=== PATIENT | female | born 1990 | race Two or more races ===

== ENCOUNTER 2019-06-10 16:59 | Inpatient (IN) | payer BC ==
[~2019-06-10] VITALS: Ht 152.4 cm; Wt 65.9 kg
[2019-06-10] MEDS ORDERED: albuterol 2.5 MG/3 ML nebule ONE (17:15)
[2019-06-10] MEDS ORDERED: normal saline 1000ML IV soln IVB ONE (17:20)
[2019-06-10] MEDS ORDERED: methylPREDNISolone sod succ 125mg/2ml vial IV ONE (17:20)
[2019-06-10] MEDS ORDERED: albuterol 2.5 MG/3 ML nebule CONTNEB PRN (17:20)
[2019-06-10 17:25] LABS: BASOPHILS # (AUTO) 0.1 X10'3 (0-0.2); BASOPHILS % (AUTO) 0.7 % (0-1); EOSINOPHILS # (AUTO) 0.4 X10'3 (0-0.9); HEMATOCRIT 43.5 % (35.0-45.0); HEMOGLOBIN 14.6 g/dl (12.0-16.0); LYMPHOCYTES # (AUTO) 2.6 X10'3 (1.1-4.8); LYMPHOCYTES % (AUTO) 36.7 % (21-51); MEAN CORPUSCULAR HEMOGLOBIN 29.7 PG (27.0-31.0); MEAN CORPUSCULAR HGB CONC 33.5 g/dL (33.0-36.5); MEAN CORPUSCULAR VOLUME 88.6 FL (78-98); MEAN PLATELET VOLUME 8.2 FL (7.4-10.4); MONOCYTES # (AUTO) 0.5 X10'3 (0-0.9); MONOCYTES % (AUTO) 7.5 % (2-12); NEUTROPHILS # (AUTO) 3.5 X10'3 (1.8-7.7); NEUTROPHILS % (AUTO) 49.1 % (42-75); PLATELET COUNT 344 X10'3 (140-440); RED BLOOD COUNT 4.91 X10'6 (4.20-5.60); RED CELL DISTRIBUTION WIDTH 13.6 % (11.5-14.5); WHITE BLOOD COUNT 7.1 X10'3 (4.5-11.0)
--- NOTE | 2019-06-10 17:33 | NUR ---
1700- Patient ambulated to room, vital signs obtained and found to be WNL. Insp/Exp wheezes noted to b/l Addendum: 06/10/19 at 1734 by CBLAKE upper lobes, but patient continued to be able to speak and respond. RT paged at this time. 170- Patient sat down on gurney and stated "I can't breathe." Satting 92-93%. 171- RN started 20G to RAC. Patient in tripod position and unable to speak. 171- RT at bedside. Patient became unresponsive. Dr. Madrid at bedside. Continuous Duoneb ordered. Patient repositioned, 4L NC applied. Patient's O2 sat quickly increased from 89% to 92%. Patient was able to assist staff with repositioning to semi-Fowlers. 172- Nebulizer initaitedinitiated. RN pushed solu-medrol as ordered. Patient's O2 saturations giovany to 100%, though she continued to be unresponsive to sternal pressure. 174- Patient now with eyes open; responsive and coughing. RR 16.
[2019-06-10] MEDS ORDERED: LORazepam 2 mg/ml vial IV ONE (17:35)
[2019-06-10 17:39] LABS: ALANINE AMINOTRANSFERASE 17 U/L (12-78); ALBUMIN 4.2 G/DL (3.4-5.0); ALBUMIN/GLOBULIN RATIO 1.4 (1.1-1.5); ALKALINE PHOSPHATASE 53 IU/L (46-116); ANION GAP 9 (8-16); ASPARTATE AMINO TRANSFERASE 17 U/L (10-37); BILIRUBIN,TOTAL 0.4 MG/DL (0.1-1.0); BLOOD UREA NITROGEN 16 MG/DL (7-18); BUN/CREATININE RATIO 23.2 (6.6-38.0); CALCIUM 9.8 MG/DL (8.5-10.1); CHLORIDE 105 MMOL/L (99-107); CREATININE 0.69 MG/DL (0.40-0.90); GLUCOSE 95 MG/DL (70-104); POTASSIUM 3.6 MMOL/L (3.5-5.1); SODIUM 138 MMOL/L (135-145); TOTAL PROTEIN 7.2 G/DL (6.4-8.2); eGFR > 90 ML/MIN
[2019-06-10] MEDS ORDERED: magnesium 2GM in 50ml NS 50 ML IV ONE (17:50)
--- NOTE | 2019-06-10 18:17 | NUR ---
RT notified that continuous neb is out of medication.
--- NOTE | 2019-06-10 18:32 | NUR ---
Paged PHYSICAL METEOROLOGIST for continuous neb treatment. Patient requested further breathing tx, inspiratory and expiratory wheezes are also present.
[2019-06-10] MEDS ORDERED: FLUT1BLS3 (19:03)
[2019-06-10] MEDS ORDERED: ALBU18HF2 INH ×2 (19:03→19:25)
[2019-06-10] MEDS ORDERED: PRED20TA PO (19:25)
[2019-06-10] MEDS ORDERED: acetaminophen 325mg tablet PO PRN (20:10)
[2019-06-10] MEDS ORDERED: ondansetron/PF 4mg/2ml inj IV PRN (20:10)
[2019-06-10] MEDS ORDERED: ipratropium/albuterol 3ml nebule NEB PRN (20:10)
[2019-06-10] MEDS ORDERED: magnesium hydroxide 30ml (MOM) UD suspension PO PRN (20:10)
[2019-06-10] MEDS ORDERED: mag hydrox/Alum hydrox/simeth 30ml oral suspension PO PRN (20:10)
[2019-06-10] MEDS: normal saline 1000ml 1,000 ML IV SCH ×2 (20:13→21:18)
--- NOTE | 2019-06-10 21:00 | NUR ---
Patient in room PCU 3024. I have received report from PARUL Hodge in ER and had the opportunity to ask questions and assume patient care.
[2019-06-10] MEDS: methylPREDNISolone sod succ/PF 40mg inj. IV SCH (23:42)
[2019-06-11] MEDS: ipratropium/albuterol 3ml nebule NEB SCH ×4 (00:04→11:05)
[2019-06-11 02:00] VITALS: BP 91/49
[2019-06-11] MEDS ORDERED: methylPREDNISolone sod succ 125mg/2ml vial IV SCH (02:00)
--- NOTE | 2019-06-11 02:02 | NUR ---
Patient arrived to PCU 3024A from ER for overnight observation. She walked to the bed and is able to move independently. A&Ox4 and Vital signs: BP 99/54, HR 124, Temp98.0F, RR 18, 96% on room air. Patient was placed on tele 48, educated about MRSA swab, and oriented to the room. Denies burning on urination, nausea, and chest pain. Questions were encouraged and answered. Will continue to monitor
--- NOTE | 2019-06-11 05:59 | NUR ---
Student Medication Administration: For this medication-pass time frame, all medication were reviewed, dispensed, administered and documented per hospital policy by Maggy BRADFORD. Student documentation: I have reviewed and agree with all interventions, assessments performed and documented by Maggy BRADFORD.
--- NOTE | 2019-06-11 06:00 | NUR ---
Patient in room PCU 3024. I have received report from Yolanda TERAN and had the opportunity to ask questions and assume patient care.
[2019-06-11 06:16] LABS: ALBUMIN 3.7 G/DL (3.4-5.0); ANION GAP 12 (8-16); BLOOD UREA NITROGEN 13 MG/DL (7-18); BUN/CREATININE RATIO 20.6 (6.6-38.0); CHLORIDE 108 MMOL/L (99-107); CREATININE 0.63 MG/DL (0.40-0.90); GLUCOSE 148 MG/DL (70-104); SODIUM 138 MMOL/L (135-145); TOTAL CARBON DIOXIDE 18.4 MMOL/L (24-32); eGFR > 90 ML/MIN
[2019-06-11 06:17] LABS: BASOPHILS % (AUTO) 0.1 % (0-1); EOSINOPHILS % (AUTO) 0 % (0-6); HEMATOCRIT 37.4 % (35.0-45.0); HEMOGLOBIN 12.6 g/dl (12.0-16.0); LYMPHOCYTES # (AUTO) 0.6 X10'3 (1.1-4.8); MEAN CORPUSCULAR HEMOGLOBIN 29.6 PG (27.0-31.0); MEAN CORPUSCULAR HGB CONC 33.7 g/dL (33.0-36.5); MEAN CORPUSCULAR VOLUME 87.7 FL (78-98); MEAN PLATELET VOLUME 8.4 FL (7.4-10.4); MONOCYTES # (AUTO) 0.1 X10'3 (0-0.9); NEUTROPHILS # (AUTO) 9.3 X10'3 (1.8-7.7); NEUTROPHILS % (AUTO) 92.9 % (42-75); PLATELET COUNT 290 X10'3 (140-440); RED BLOOD COUNT 4.26 X10'6 (4.20-5.60); RED CELL DISTRIBUTION WIDTH 13.9 % (11.5-14.5)
--- NOTE | 2019-06-11 06:38 | NUR ---
Problems reprioritized. Patient report given, questions answered & plan of care reviewed with PARUL Heart.
[2019-06-11 07:00] VITALS: BP 94/54
[2019-06-11] MEDS ORDERED: heparin, porcine 5000 units/ml vial SQ SCH (08:00)
[2019-06-11] MEDS: methylPREDNISolone sod succ/PF 40mg inj. IV SCH (08:04)
[2019-06-11] MEDS ORDERED: acetaminophen 325mg tablet PO PRN (08:40)
[2019-06-11 09:11] LABS: CLARITY,URINE SLIGHTLY CLOUDY (Clear); COLOR,URINE YELLOW (Yellow); GLUCOSE, URINE 250 mg/dl (Neg); KETONES,URINE TRACE mg/dl (Neg); LEUKOCYTE ESTERASE ,URINE TRACE (Neg); NITRITES, URINE NEGATIVE (Neg); OCCULT BLOOD,URINE NEGATIVE (Neg); PROTEIN,URINE NEGATIVE (Neg); UROBILINOGEN,URINE 0.2 E.U/dL (0.2-1.0)
[2019-06-11 09:12] LABS: UA COLLECTION TYPE CLN CATCH MIDSTREAM; URINE HCG NEGATIVE (NEG)
[2019-06-11 09:44] LABS: SQUAMOUS EPITHELIAL CELL,UR MANY /LPF (FEW)
[2019-06-11 09:45] LABS: BACTERIA,URINE 1+ /HPF (Neg); RBC,URINE 0-2 /HPF (0-2)
--- NOTE | 2019-06-11 09:55 | NUR ---
PAGER ID: [phone] MESSAGE: [id number] Norah Martin. UA results in but culture sample is not acceptable for culture due to probable perineal contamination. ALLIE Heart [id number]
[2019-06-11] MEDS ORDERED: PRED20TA PO (10:50)
[2019-06-11 11:00] VITALS: BP 100/47
--- NOTE | 2019-06-11 11:36 | NUR ---
Patient was cleared to discharge home. Vital signs stable. Denies respiratory symptoms. All discharge instructions and medications reviewed with patient. Pt. stated she will make a follow up with her primary tomorrow 06/12/19. Patients ride is coming from [place] and will not be able to pick her up until 1200.
--- NOTE | 2019-06-11 13:00 | NUR ---
Patients family picked her up and she left in stable condition.
== END 2019-06-11 13:00 | disposition home or self-care (01) | DRG 189 ==
LOC: ER 17:00 → ED HOLD 20:15 → PCU 3S 20:50
PROVIDERS: ADMIT Family Medicine; ATTEND Family Medicine
DX: J96.01 Acute respiratory failure with hypoxia (principal); J45.52 Severe persistent asthma with status asthmaticus; M54.9 Dorsalgia, unspecified; Z82.49 Family history of ischemic heart disease and other diseases of the circulatory system; Z83.3 Family history of diabetes mellitus
CPT/HCPCS: 36415; 71045; 80048; 80053; 81001; 81025; 84484; 85025; 87081; 93005; 94640; 94760; 96365; 96375; 99291; G0378; J1644; J2060; J2920; J2930; J3475; J7030

== ENCOUNTER 2020-04-27 18:54 | Emergency (ER) | payer BC ==
[~2020-04-27] VITALS: Ht 160 cm; Wt 65.9 kg
[~2020-04-27 18:54] MED LIST: ALBU18HF2 INH; FLUT1BLS3; PRED20TA PO
[2020-04-27] MEDS ORDERED: epiNEPHrine 1 mg/ml inj IM STA (19:07)
[2020-04-27] MEDS ORDERED: methylPREDNISolone sod succ 125mg/2ml vial IV ONE (19:10)
[2020-04-27] MEDS ORDERED: albuterol 2.5 MG/3 ML nebule NEB ONE (19:10)
[2020-04-27] MEDS ORDERED: magnesium 2GM in 50ml NS 50 ML IV ONE (19:10)
[2020-04-27] MEDS ORDERED: loratadine/pseudoephedrine TAB.SR.12Hour PO STA (20:20)
[2020-04-27 20:21] LABS: BASOPHILS % (AUTO) 0.1 % (0-1); EOSINOPHILS % (AUTO) 0 % (0-6); HEMATOCRIT 39.8 % (35.0-45.0); HEMOGLOBIN 13.1 g/dl (12.0-16.0); LYMPHOCYTES # (AUTO) 1.5 X10'3 (1.1-4.8); MEAN CORPUSCULAR HEMOGLOBIN 29.9 PG (27.0-31.0); MEAN CORPUSCULAR HGB CONC 33.1 g/dL (33.0-36.5); MEAN CORPUSCULAR VOLUME 90.4 FL (78-98); MEAN PLATELET VOLUME 7.7 FL (7.4-10.4); MONOCYTES # (AUTO) 1.4 X10'3 (0-0.9); MONOCYTES % (AUTO) 10.3 % (2-12); NEUTROPHILS # (AUTO) 10.9 X10'3 (1.8-7.7); NEUTROPHILS % (AUTO) 78.6 % (42-75); PLATELET COUNT 381 X10'3 (140-440); RED CELL DISTRIBUTION WIDTH 13.9 % (11.5-14.5); WHITE BLOOD COUNT 13.9 X10'3 (4.5-11.0)
[2020-04-27 20:37] LABS: ALANINE AMINOTRANSFERASE 29 U/L (12-78); ALBUMIN 4.2 G/DL (3.4-5.0); ALBUMIN/GLOBULIN RATIO 1.4 (1.1-1.5); ALKALINE PHOSPHATASE 58 IU/L (46-116); ANION GAP 12 (8-16); ASPARTATE AMINO TRANSFERASE 17 U/L (10-37); BILIRUBIN,TOTAL 0.5 MG/DL (0.1-1.0); BLOOD UREA NITROGEN 14 MG/DL (7-18); BUN/CREATININE RATIO 15.1 (6.6-38.0); CALCIUM 9.4 MG/DL (8.5-10.1); CHLORIDE 106 MMOL/L (99-107); CREATININE 0.93 MG/DL (0.40-0.90); GLUCOSE 150 MG/DL (70-104); POTASSIUM 3.9 MMOL/L (3.5-5.1); SODIUM 141 MMOL/L (135-145); TOTAL CARBON DIOXIDE 23.4 MMOL/L (24-32); TOTAL PROTEIN 7.3 G/DL (6.4-8.2); eGFR 72 ML/MIN
[2020-04-27] MEDS ORDERED: albuterol 2.5 MG/3 ML nebule CONTNEB PRN (21:00)
[2020-04-27 21:32] VITALS: BP 117/63
[2020-04-27] MEDS ORDERED: PRED20TA PO (23:05)
[2020-04-27] MEDS ORDERED: P-EP-21 PO (23:05)
[2020-04-27] MEDS ORDERED: EPIN0.3P3 IM (23:05)
== END 2020-04-27 23:15 | disposition home or self-care (01) ==
LOC: ER 18:55
DX: J45.901 Unspecified asthma with (acute) exacerbation (principal); Z88.8 Allergy status to other drugs, medicaments and biological substances; Z79.899 Other long term (current) drug therapy
CPT/HCPCS: 36415; 80053; 85025; 94640; 94644; 96365; 96372; 96375; 99285; J0171; J2930; J3475; 94760; A7015

== ENCOUNTER 2020-04-28 06:44 | Emergency (ER) | payer BC ==
[~2020-04-28] VITALS: Ht 152.4 cm; Wt 65.9 kg
[~2020-04-28 06:44] MED LIST changes: +EPIN0.3P3 IM; +P-EP-21 PO
[2020-04-28] MEDS ORDERED: ipratropium/albuterol 3ml nebule NEB ONE (07:10)
[2020-04-28] MEDS ORDERED: predniSONE 20 mg tablet PO ONE (07:10)
[2020-04-28 08:43] VITALS: BP 130/75
== END 2020-04-28 08:45 | disposition home or self-care (01) ==
LOC: ER 06:44
DX: J45.901 Unspecified asthma with (acute) exacerbation (principal); Z72.89 Other problems related to lifestyle; Z88.8 Allergy status to other drugs, medicaments and biological substances; Z79.899 Other long term (current) drug therapy
CPT/HCPCS: 71046; 94640; 99283; J7512; 94760